=== PATIENT | male | born 1970 | race Hispanic/Latino ===

== ENCOUNTER 2025-06-28 00:15 | Inpatient (IN) | payer SELFPAY ==
[2025-06-28] VITALS (21 sets, daily range): BP systolic 129–187; BP diastolic 81–119; PULSE 71–112; RESP 10–23; TEMP 36.1–36.9; O2SAT 89–97; BMI 46.5
--- NOTE | 2025-06-28 00:16 | DI.RAD.S_ITS ---
PROCEDURE: XR CHEST 1V INDICATIONS: Chest Pain TECHNIQUE: One view of the chest was acquired. COMPARISON: None. FINDINGS: Surgical changes and devices: None. Lungs and pleura: No consolidation. Question bronchial wall thickening. No pleural effusions or pneumothorax. Mediastinum: Mediastinal contours appear normal. Heart size is normal. Bones and chest wall: No suspicious bony lesions. Overlying soft tissues appear unremarkable. IMPRESSION: Question bronchial wall thickening. This could be seen in reactive airways disease or bronchitis. Dictated by: Michael Yepez M.D. on 06/28/2025 at 1:01 Approved by: Michael Yepez M.D. on 06/28/2025 at 1:02
--- NOTE | 2025-06-28 00:16 | EKG_ITS ---
[address] [address] Test Date: 2025-06-28 Pat Name: Rolando Sherman Jr Department: Room: Gender: Male Renal Technician: KRISTIN : 1970 Requested By: Order Number: [id number] Reading MD: Nino Lopez MD Measurements Intervals [place] Rate: 82 P: 40 [place]: 142 QRS: 27 QRSD: 106 T: 73 QT: 386 QTc: 450 Interpretive Statements Normal sinus rhythm Electronically Signed On 06-28-2025 9:20:53 PST by Nino Lopez MD
--- NOTE | 2025-06-28 00:35 | PC.NURSE ---
pt c/o chest pain with cough that has increased in severity, and also worsens when outside in the cold
[2025-06-28 00:42] LABS: Add Manual Diff / Slide Review NO; Hematocrit 43.7 % (41-53); Hemoglobin 14.9 g/dL (13.5-17.5); Lymphocytes Absolute Auto 3400 /uL (1100-4500); Mean Corpuscular HGB Conc 34.0 % (30-36); Mean Corpuscular Hemoglobin 31.7 PG (26-34); Mean Corpuscular Volume 93.3 fL (80-100); Platelet Count 249 X10^3/uL (150-400)
[2025-06-28 00:47] LABS: INR 1.1 (0.9-1.3); Prothrombin Time 12.8 SECONDS (9.4-12.5)
[2025-06-28 00:50] LABS: PTT Partial Thromboplastin Tim 39 SECONDS (25.1-36.5)
[2025-06-28 00:56] LABS: Alanine Aminotransferase 22 IU/L (<50); Albumin 4.5 g/dL (3.5-5.0); Albumin Globulin Ratio 1.3 (1.0-2.8); Alkaline Phosphatase 105 U/L (38-126); Blood Urea Nitrogen 32 mg/dL (9-20); Calcium 9.6 mg/dL (8.4-10.2); Carbon Dioxide 31 mmol/L (22-32); Chloride 103 mmol/L (98-107); Creatine Kinase 49 U/L (55-170); Estimated Glomerular Filt Rate > 60 mL/min (>60); Globulin 3.4 g/dL (1.7-4.1); Glucose 102 mg/dL (70-99); HEMOLYSIS < 15 (0-50); Lipase 71 U/L (23-300); Magnesium 2.0 mg/dL (1.6-2.3); Potassium 4.2 mmol/L (3.4-5.1); Sodium 143 mmol/L (137-145); Total Protein 7.9 g/dL (6.3-8.2)
--- NOTE | 2025-06-28 00:58 | ED_ITS ---
HPI - Chest Pain General Chief Complaint: Chest Pain Stated Complaint: Chest Pain Time Seen by Provider: 06/28/25 00:35 Source: patient Mode of arrival: Ambulatory Limitations: no limitations History of Present Illness HPI narrative: 54-year-old male with a history of hypertension diabetes , sleep apnea presents with flu-like symptoms for the past week and today presented with more shortness of breath and pain in bilateral axillary regions that started suddenly today. He does admit to being a long-time 30 plus pack year smoker but has never been diagnosed with any chronic lung conditions and is not using any inhalers at this moment. He denies any GI or symptoms or any other symptoms. Thirteen point review of systems negative except per HPI Related Data Allergies Allergy/AdvReac Type Severity Reaction Status Date / Time pumpkin Allergy Verified 06/28/25 00:27 Review of Systems Review of Systems ROS Unobtainable: All systems reviewed & are unremarkable except as noted in HPI and below Patient History Social History Smoking Status: Current every day smoker Smoking Status: Current every day smoker tobacco type: cigarettes Exam Narrative Exam Narrative: General: Patient appears to be in no acute distress, acting appropriately Head: normocephalic, atraumatic, HEENT: Pupils equal round reactive, eyes tracking well, neck supple, no JVD Heart: regular rate and rhythm, no murmurs, rubs, or gallops heard Lungs: Bilateral wheezing and rhonchi heard Abdomen: soft , nontender, nondistended, positive bowel sounds Neurological: no focal neurological signs, moving all extremities well, alert and oriented x3, Psych: good judgment ,good insight, mood is normal. Initial Vital Signs Initial Vital Signs: Vital Signs Temperature 98.5 F 06/28/25 00:27 Pulse Rate 85 06/28/25 00:27 Respiratory Rate 22 06/28/25 00:27 Blood Pressure 177/101 H 06/28/25 00:27 Pulse Oximetry 93 06/28/25 00:27 Oxygen Delivery Method Room Air 06/28/25 00:27 Course Orders Ordered: ED Orders 06/28/25 00:16 XR chest 1V Stat EKG-12 Lead Stat 06/28/25 00:31 Complete Blood Count AUTO DIFF Stat Comprehensive Metabolic Panel Stat Covid-19 + FLU A/B + RSV - PCR Stat Lipase Stat Magnesium Stat NT-proBNP (BNP-Adult 18+) Stat PTT Partial Thromboplastin Delio Stat Prothrombin Time INR Stat Troponin & CK Cardiac Panel Stat 06/28/25 00:58 D Dimer Stat 06/28/25 01:44 CT angio chest PE protocol Stat 06/29/25 06:00 Basic Metabolic Panel DAILY Complete Blood Count AUTO DIFF DAILY Acetaminophen (Acetaminophen 325 Mg Tablet) 650 mg PO Q6H PRN PRN Reason: Fever/Mild Pain (1-3) Albuterol/Ipratropium (Albuterol/Ipratropium 3 Ml Ampul) 3 ml INH RTQ4HR PRN PRN Reason: Shortness Of Breath Albuterol/Ipratropium (Albuterol/Ipratropium 3 Ml Ampul) 3 ml INH [id number] MARINA Azithromycin 500 mg/ Dextrose 250 mls @ 250 mls/hr IV Q24H MARINA Ceftriaxone Sodium 1,000 mg/ (Sodium Chloride) 100 mls @ 200 mls/hr IV Q24H MARINA Methylprednisolone (Methylprednisolone Succ 125 Mg/2 Ml Vial) 60 mg IV Q8H MARINA Naloxone HCl (Naloxone 0.4 Mg/Ml Vial) 0.2 mg IV Q2MIN PRN PRN Reason: Opiate Reversal Discontinued Medications Albuterol/Ipratropium (Albuterol/Ipratropium 3 Ml Ampul) 3 ml INH NOW ONE Stop: 06/28/25 00:57 Last Admin: 06/28/25 01:05 Dose: 3 ml Albuterol/Ipratropium (Albuterol/Ipratropium 3 Ml Ampul) 3 ml INH NOW ONE Stop: 06/28/25 01:35 Last Admin: 06/28/25 01:38 Dose: 3 ml Azithromycin 500 mg/ Dextrose 250 mls @ 250 mls/hr IV NOW ONE Stop: 06/28/25 03:32 Methylprednisolone (Methylprednisolone Succ 125 Mg/2 Ml Vial) 125 mg IV NOW ONE Stop: 06/28/25 01:35 Last Admin: 06/28/25 02:21 Dose: 125 mg Reevaluation(s) Reevaluation #1: Upon re-evaluation, patient is breathing better after 2 DuoNeb treatments. Consultations Consultation #1: Consultation made with hospitalist Dr. Castro who graciously admitted the patient. Vital Signs Vital signs: Vital Signs - 8 hr 06/28/25 00:27 06/28/25 01:06 06/28/25 01:40 Temperature 98.5 F Pulse Rate 85 84 73 Respiratory Rate 22 20 18 Blood Pressure 177/101 H Pulse Oximetry 93 93 93 Oxygen Delivery Method Room Air Nasal Cannula Oximask Oxygen Flow Rate 2 4 06/28/25 01:54 06/28/25 02:24 06/28/25 02:25 Temperature Pulse Rate 87 83 Respiratory Rate Blood Pressure 129/86 Pulse Oximetry 91 93 Oxygen Delivery Method Oxygen Flow Rate 06/28/25 02:25 06/28/25 02:30 06/28/25 02:30 Temperature Pulse Rate 84 81 Respiratory Rate 10 L Blood Pressure 141/84 H Pulse Oximetry 92 94 Oxygen Delivery Method Oximask Oximask Oxygen Flow Rate 4 4 MDM - Chest Pain Lab Data 06/28/25 00:31 06/28/25 00:31 Labs: Lab Results 06/28/25 Range/Units 00:31 WBC 11.0 (4.5-11.0) X10^3/uL RBC 4.69 (4.5-5.9) X10^6/uL Hgb 14.9 (13.5-17.5) g/dL Hct 43.7 (41-53) % MCV 93.3 (80-100) fL MCH 31.7 (26-34) PG MCHC 34.0 (30-36) % RDW 13.9 (11.6-14.8) % Plt Count 249 (150-400) X10^3/uL Neut % (Auto) 57.2 (50-75) % Lymph % (Auto) 31.4 (25-40) % [place] % (Auto) 8.2 (3-14) % Eos % (Auto) 2.3 (2-4) % Baso % (Auto) 0.9 (0-2) % Neut # (Auto) 6300 (0219-6159) /uL Lymph # (Auto) 3400 (4737-7790) /uL [place] # (Auto) 900 (0-900) /uL Eos # (Auto) 200 (0-450) /uL Baso # (Auto) 100 (0-100) /uL PT 12.8 H (9.4-12.5) SECONDS INR 1.1 (0.9-1.3) APTT 39 H (25.1-36.5) SECONDS D-Dimer 1077 H (<500) ng/ml Sodium 143 (137-145) mmol/L Potassium 4.2 (3.4-5.1) mmol/L Chloride 103 (98-107) mmol/L Carbon Dioxide 31 (22-32) mmol/L BUN 32 H (9-20) mg/dL Creatinine 1.08 (0.66-1.25) mg/dL Estimated GFR > 60 (>60) mL/min BUN/Creatinine Ratio 29.6 H (6-22) Glucose 102 H (70-99) mg/dL Calcium 9.6 (8.4-10.2) mg/dL Magnesium 2.0 (1.6-2.3) mg/dL Total Bilirubin 0.4 (0.2-1.3) mg/dL AST 25 (17-59) IU/L ALT 22 (<50) IU/L Alkaline Phosphatase 105 (38-126) U/L Total Creatine Kinase 49 L (55-170) U/L Troponin I 0.015 (0.01-0.034) ng/mL NT-Pro-B Natriuret Pep 117 (<125) pg/mL Total Protein 7.9 (6.3-8.2) g/dL Albumin 4.5 (3.5-5.0) g/dL Globulin 3.4 (1.7-4.1) g/dL Albumin/Globulin Ratio 1.3 (1.0-2.8) Lipase 71 (23-300) U/L SARS-CoV-2 (PCR) Negative (Negative) Influenza A (RT-PCR) Flu a negative (NEGATIVE) Influenza B (RT-PCR) Flu b negative (NEGATIVE) RSV (PCR) Negative (Negative) Imaging Data CT scan - chest: Radiologist's Impression: No pulmonary emboli identified. Possible infiltrate or pneumonitis in the right upper lobe. Chest x-ray: Radiologist's Impression: Question bronchial wall thickening. This could be seen in reactive airways disease or bronchitis. ECG Data Interpretation: EKG shows a normal axis, normal sinus rhythm, rate of 82 beats per minute, normal OH intervals no STT wave changes. No previous EKG for comparison. MDM Narrative Medical decision making narrative: 54-year-old male who has never been diagnosed with COPD but claims to use home O2 off and on. He is out of home O2 at the moment. He came in with sudden more shortness of breath and pain in his bilateral axillary regions. He fits the picture of more of a COPD exacerbation considering his long-time smoking history. He does feel better after couple of DuoNeb treatments and Solu-Medrol. He is still requiring 4 L on the OxyMask and so it was decided to admit the patient for this presumed COPD exacerbation needing O2 support. Discharge Plan Departure Patient Disposition: Admitted As Inpatient Clinical Impression: Acute exacerbation of chronic obstructive pulmonary disease, Shortness of breath Admit Date/Time: 06/28/25 03:52 Admit Provider: Jimy Castro
[2025-06-28] MEDS: ALBUTEROL/IPRATROPIUM 3 ML AMPUL INH ×5 (01:05→20:00)
[2025-06-28 01:07] LABS: NT-proBNP (BNP-Adult 18+) 117 pg/mL (<125); Troponin I 0.015 ng/mL (0.01-0.034)
[2025-06-28 01:16] LABS: Influenza A - CEPHEID Flu A NEGATIVE (NEGATIVE); Influenza B - CEPHEID Flu B NEGATIVE (NEGATIVE)
[2025-06-28 01:18] LABS: COVID-19 CEPHEID 4-PLEX PCR Negative (Negative)
--- NOTE | 2025-06-28 01:44 | DI.CT.S_ITS ---
PROCEDURE: CT ANGIO CHEST PE PROTOCOL INDICATIONS: elevated d dimer, short of breath TECHNIQUE: After the administration of intravenous contrast, 2 mm thick sections acquired from the pulmonary apices to the posterior costophrenic angles. 3-dimensional maximum intensity projection (MIP) coronal and sagittal reformats were then acquired through the thorax. For radiation dose reduction, the following was used: automated exposure control, adjustment of mA and/or kV according to patient size. COMPARISON: [facility], CR, XR CHEST 1V, 06/28/2025, 0:14. FINDINGS: Image quality: Diagnostic. Pulmonary arteries: Pulmonary arteries are normal in size, and demonstrate no intraluminal filling defects to suggest central pulmonary embolism. Lower Neck: No enlarged lymph nodes. Thyroid: No thyroid nodules which require sonographic follow up, per consensus guidelines. Axillae: No enlarged lymph nodes. Chest Wall: Unremarkable. Bones: Age-appropriate bony degenerative changes are seen. Accentuated thoracic kyphosis is seen. Lungs and Pleura: No pneumothorax or pleural effusions. Minimal opacity can be seen within the anterior medial right upper lobe. Heart: Heart size is normal. No pericardial effusion. Thoracic Vessels: No aortic aneurysm. Mediastinum and Mary: No enlarged lymph nodes. Esophagus: No wall thickening. No hiatal hernia. Upper Abdomen: Visualized upper abdomen solid organs and bowel loops appear normal. IMPRESSION: No pulmonary embolus. Minimal opacity seen within the anterior medial right upper lobe. Mild infiltrate versus infection are possible. Note: No significant discrepancy from the preliminary report. Dictated by: Nilton Briggs M.D. on 06/28/2025 at 6:55 Approved by: Nilton Briggs M.D. on 06/28/2025 at 6:58
[2025-06-28] MEDS: methylPREDNISolone succ 125 MG/2 ML VIAL IV (02:21)
[2025-06-28] MEDS: AZITHROMYCIN 500 MG in DEXTROSE 5% IN WATER 250 ML 250 MG IV (04:17)
--- NOTE | 2025-06-28 04:22 | PM.HP.1 ---
History of Present Illness History of Present Illness Date Patient Seen: 06/28/25 Time Patient Seen: 04:22 Chief complaint: Chest Pain Narrative: 54-year-old male with past medical history of COREY on 2 L oxygen at bedtime, hypertension, active tobacco smoker and smoked 1-1/2 pack/day (smokes about 30 years), morbid obesity and diabetes presents with shortness of breath. Per the patient's report, the patient has been having flulike symptoms. Today the patient shortness of breath worsens and does admit to have some wheezing. The patient however denies any prior history of COPD and does not have any inhalers at home. Patient otherwise denies any fever, chills, nausea, vomit, diarrhea or chest pain. In the emergency room, the patient was requiring 4 L oxygen per nasal cannula. The patient however was found hemodynamically stable. Chest x-ray shows possible bronchitis. CT angio of the chest shows no PE but a possible early pneumonia/colitis. Other labs relatively benign. She was given Solu-Medrol, azithromycin, DuoNebs and oxygen. [facility] Social History Smoking Status: Current every day smoker Meds Home Medications and Allergies Allergies Allergy/AdvReac Type Severity Reaction Status Date / Time pumpkin Allergy Verified 06/28/25 00:27 Review of Systems Review of Systems ROS: Yes All systems reviewed with the patient and are negative except as otherwise documented Exam Vital Signs (past 8 hours): - 06/28/25 00:27 06/28/25 01:06 06/28/25 01:40 Temperature 98.5 F Pulse Rate 85 84 73 Respiratory Rate 22 20 18 Blood Pressure 177/101 H Pulse Oximetry 93 93 93 Oxygen Delivery Method Room Air Nasal Cannula Oximask Oxygen Flow Rate 2 4 06/28/25 01:54 06/28/25 02:24 06/28/25 02:25 Temperature Pulse Rate 87 83 Respiratory Rate Blood Pressure 129/86 Pulse Oximetry 91 93 Oxygen Delivery Method Oxygen Flow Rate 06/28/25 02:25 06/28/25 02:30 06/28/25 02:30 Temperature Pulse Rate 84 81 Respiratory Rate 10 L Blood Pressure 141/84 H Pulse Oximetry 92 94 Oxygen Delivery Method Oximask Oximask Oxygen Flow Rate 4 4 Oxygen Delivery Method Oximask Oxygen Flow Rate 4 Narrative Exam Narrative: Physical Exam: GENERAL: The patient is not in any acute distressed. Awake and alert. Morbid obese male on O2 face mask. HEENT: Nonicteric sclerae, PERRLA, EOMI. Oropharynx clear. Moist mucous membranes. Conjunctivae appear well perfused. HEART: Regular rate and rhythm without murmurs. No lower extremities edema. LUNGS: Mild bilateral wheezing otehrwise Clear to auscultation bilaterally. No crackles or rhonchi ABDOMEN: Soft, positive bowel sounds, nontender. SKIN: No rash, no excessive bruising, petechiae, or purpura. NEUROLOGIC: AxO x 3. Cranial nerves II-XII intact without motor/sensory deficit. Objective Labs 06/28/25 00:31 12 00:31 Labs: Laboratory Results - last 24 hr 06/28/25 00:31 WBC 11.0 RBC 4.69 Hgb 14.9 Hct 43.7 MCV 93.3 MCH 31.7 MCHC 34.0 RDW 13.9 Plt Count 249 Neut % (Auto) 57.2 Lymph % (Auto) 31.4 [place] % (Auto) 8.2 Eos % (Auto) 2.3 Baso % (Auto) 0.9 Neut # (Auto) 6300 Lymph # (Auto) 3400 [place] # (Auto) 900 Eos # (Auto) 200 Baso # (Auto) 100 PT 12.8 H INR 1.1 APTT 39 H D-Dimer 1077 H Sodium 143 Potassium 4.2 Chloride 103 Carbon Dioxide 31 BUN 32 H Creatinine 1.08 Estimated GFR > 60 BUN/Creatinine Ratio 29.6 H Glucose 102 H Calcium 9.6 Magnesium 2.0 Total Bilirubin 0.4 AST 25 ALT 22 Alkaline Phosphatase 105 Total Creatine Kinase 49 L Troponin I 0.015 NT-Pro-B Natriuret Pep 117 Total Protein 7.9 Albumin 4.5 Globulin 3.4 Albumin/Globulin Ratio 1.3 Lipase 71 SARS-CoV-2 (PCR) Negative Influenza A (RT-PCR) Flu a negative Influenza B (RT-PCR) Flu b negative RSV (PCR) Negative Assessment & Plan Assessment & Plan narrative: Possible diagnoses COPD exacerbation. Admit the patient to medical telemetry as inpatient. Continue Solu-Medrol, DuoNebs and oxygen. Treat underlying infection. Will need to have PFTs as outpatient post discharge to diagnose COPD as patient is a 40 pack year plus smoker. Acute on chronic respiratory failure with hypoxemia. Again patient is at baseline 2 L of oxygen per nasal at night. Currently patient is on 4 L oxygen per nasal cannula. Likely due to above. CT angio that shows PE. Treat as above and wean oxygen. Early pneumonia/colitis-azithromycin and statin. Patient not septic at this time. Hypertension monitor blood pressure continue medication accordingly. Diabetes. Monitor glucose with subcu insulin. DVT prophylaxis Lovenox CODE STATUS Full code Disposition Home in 2 days. - As the provider of this telehealth evaluation, requested by the patient's evaluating physician, I attest that I introduced myself to the patient, provided my credentials and determined that telemedicine via a real-time, 2 way interactive audio and video platform is an appropriate and effective means of providing this service. - I reviewed the patient's chart and had a discussion with the member of the patient's treatment team. - The patient and I mutually agreed with continuation of this evaluation via telemedicine. The patient consented for the telemedicine evaluation. - This virtual encounter was taken place from [place] by Dr. Jimy Castro. The patient was evaluated at [facility]. The encounter was approximately 35 minutes. The nurse was present during the entire time of the encounter and was able assists with the stethoscope to listen to the patients. Time-Based Coding :: [TOTAL MINUTES] spent with patient and on the chart (including review of chart, obtaining history, exam, reviewing outside data, placing orders, documenting exam and treatment plan, and counseling patient) on [DATE].
--- NOTE | 2025-06-28 04:28 | PC.NURSE ---
no change in pt's condition, discussed with pt the importance of him using his cpap machine d/t his oxygen levels dropping when he sleeps, pt verbalized understanding, on oxymask at 4 liters at this time to maintain O2 levels
[2025-06-28] MEDS: ENOXAPARIN 40 MG/0.4 ML SYRINGE SUBCUT ×2 (08:34→21:22)
[2025-06-28] MEDS: methylPREDNISolone succ 125 MG/2 ML VIAL 60 MG IV ×2 (08:34→17:22)
[2025-06-28] MEDS: INSULIN GLARGINE 100 UNIT/ML 3ML PEN 40 UNIT SUBCUT (08:34)
[2025-06-28] MEDS: SODIUM CHLORIDE 0.9% FLUSH 10 ML IV ×2 (08:35→21:22)
--- NOTE | 2025-06-28 11:04 | PM.HP.IH.1 ---
History of Present Illness History of Present Illness Date Patient Seen: 06/28/25 Time Patient Seen: 07:58 Chief complaint: Chest Pain Narrative: From night hospitalist: 54-year-old male with past medical history of COREY on 2 L oxygen at bedtime, hypertension, active tobacco smoker and smoked 1-1/2 pack/day (smokes about 30 years), morbid obesity and diabetes presents with shortness of breath. Per the patient's report, the patient has been having flulike symptoms. Today the patient shortness of breath worsens and does admit to have some wheezing. The patient however denies any prior history of COPD and does not have any inhalers at home. Patient otherwise denies any fever, chills, nausea, vomit, diarrhea or chest pain. In the emergency room, the patient was requiring 4 L oxygen per nasal cannula. The patient however was found hemodynamically stable. Chest x-ray shows possible bronchitis. CT angio of the chest shows no PE but a possible early pneumonia/colitis. Other labs relatively benign. She was given Solu-Medrol, azithromycin, DuoNebs and oxygen. 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 He is very interested in quitting smoking. He has smoked since his teenage years, at times over 2 packs daily, down to 1-1/2 packs lately, and using 2 mg oral nicotine pouches to help quit. He states he can not tolerate a higher dose due to tremors. He states he does not have a doctor now as he is new to his job and has not yet acquired health insurance. No alcohol use. [facility] Social History Smoking Status: Current every day smoker Meds Home Medications and Allergies Allergies Allergy/AdvReac Type Severity Reaction Status Date / Time pumpkin Allergy Verified 06/28/25 00:27 Review of Systems Review of Systems ROS: Yes All systems reviewed with the patient and are negative except as otherwise documented Exam Vital Signs (past 8 hours): - 06/28/25 03:30 06/28/25 03:30 06/28/25 04:00 Temperature Pulse Rate 79 Respiratory Rate 18 Blood Pressure 148/81 H 157/93 H Pulse Oximetry 90 L Oxygen Delivery Method Oxygen Flow Rate Fraction of Inspired Oxygen 06/28/25 04:00 06/28/25 04:16 06/28/25 04:50 Temperature 97.0 F L Pulse Rate 74 74 Respiratory Rate 20 20 Blood Pressure 152/101 H Pulse Oximetry 94 93 Oxygen Delivery Method Oximask Oxygen Flow Rate 4 Fraction of Inspired Oxygen 06/28/25 08:19 06/28/25 08:33 Temperature 97.1 F L Pulse Rate 77 71 Respiratory Rate 22 22 Blood Pressure 159/93 H Pulse Oximetry 94 94 Oxygen Delivery Method Oximask Oxygen Flow Rate 4 5 Fraction of Inspired Oxygen 92 Fraction of Inspired Oxygen 92 SaO2/FiO2 Ratio 101 Oxygen Delivery Method Oximask Oxygen Flow Rate 5 Narrative Exam Narrative: GENERAL: This is a pleasant, obese male patient, in mild respiratory distress. EYES: Pupils equal round and reactive. Extraocular motions intact. No scleral icterus. No injection or drainage. ENT: Mucous membranes pink and moist. NECK: Trachea midline. No JVD, bruits or lymphadenopathy. Supple, nontender, no meningeal signs. CARDIOVASCULAR: Regular rate and rhythm without murmurs, gallops, or rubs. RESPIRATORY: Diffuse mid to end-expiratory wheezes, no accessory muscle use. GASTROINTESTINAL: Abdomen soft, non-tender, nondistended. EXTREMITIES: Trace edema. NEUROLOGIC: Alert, oriented, speech fluent, full upper and lower motor strength, no focal deficits evident. DERMATOLOGIC: No rashes or skin lesions. Objective Imaging Chest x-ray: Radiologist's impression: Question bronchial wall thickening. This could be seen in reactive airways disease or bronchitis. Chest CTA: Radiologist's impression: No pulmonary embolus. Minimal opacity seen within the anterior medial right upper lobe. Mild infiltrate versus infection are possible. Labs 06/28/25 00:31 06/28/25 00:31 Labs: Laboratory Results - last 24 hr 06/28/25 06/28/25 06/28/25 00:31 04:47 07:26 WBC 11.0 RBC 4.69 Hgb 14.9 Hct 43.7 MCV 93.3 MCH 31.7 MCHC 34.0 RDW 13.9 Plt Count 249 Neut % (Auto) 57.2 Lymph % (Auto) 31.4 [place] % (Auto) 8.2 Eos % (Auto) 2.3 Baso % (Auto) 0.9 Neut # (Auto) 6300 Lymph # (Auto) 3400 [place] # (Auto) 900 Eos # (Auto) 200 Baso # (Auto) 100 PT 12.8 H INR 1.1 APTT 39 H D-Dimer 1077 H Sodium 143 Potassium 4.2 Chloride 103 Carbon Dioxide 31 BUN 32 H Creatinine 1.08 Estimated GFR > 60 BUN/Creatinine Ratio 29.6 H Glucose 102 H POC Whole Bld Glucose 142 H 151 H Calcium 9.6 Magnesium 2.0 Total Bilirubin 0.4 AST 25 ALT 22 Alkaline Phosphatase 105 Total Creatine Kinase 49 L Troponin I 0.015 NT-Pro-B Natriuret Pep 117 Total Protein 7.9 Albumin 4.5 Globulin 3.4 Albumin/Globulin Ratio 1.3 Lipase 71 SARS-CoV-2 (PCR) Negative Influenza A (RT-PCR) Flu a negative Influenza B (RT-PCR) Flu b negative RSV (PCR) Negative Assessment & Plan Assessment & Plan narrative: 1. COPD exacerbation. Admit the patient to medical telemetry as inpatient. Continue Solu-Medrol, DuoNebs and oxygen. Treat underlying infection. Will need to have PFTs as outpatient post discharge to diagnose COPD as patient is a 40 pack year plus smoker. 2. Acute on chronic respiratory failure with hypoxemia. Again patient is at baseline 2 L of oxygen per nasal at night. Currently patient is on 4 L oxygen per nasal cannula. Likely due to above. CT angio that shows PE. Treat as above and wean oxygen. 3. Early pneumonia/colitis-azithromycin and ceftriaxone. Patient not septic at this time. 4. Hypertension monitor blood pressure continue medication accordingly. 5. Diabetes. Monitor glucose with subcu insulin. 6. Tobacco use disorder. Cessation is advised. 7. Obstructive sleep apnea. Continue CPAP Plan: -inpatient admission -IV ceftriaxone and azithromycin -frequently administered nebulizers -IV methylprednisolone -nicotine 7 mg patch (difficulty tolerating higher doses) -diabetic diet, clarify home dose of insulin, sliding scale coverage DVT prophylaxis Lovenox CODE STATUS Full code Disposition Home in 2 days. Quality MIPS - Admit I confirm the patient?s Advance Care Plan is present, Code status is documented, Surrogate decision maker is in patient?s record [If Yes, STOP here]: Yes MIPS - Meds 'Current medications' to include all prescriptions, [id number] products, herbals, cannabis/cannabidiol products, and vitamin/mineral/dietary (nutritional) supplements. I have utilized all available resources to obtain, update, or review the patient?s current medications. [If Yes, STOP here]: Yes [facility] [employer] Document charge(s): No Charge Codes Initial inpatient/observation care: 75570
[2025-06-28] MEDS: NICOTINE 7 MG PATCH TOP (11:59)
--- NOTE | 2025-06-28 16:19 | CM.DANOTE ---
DCP Assessment note Brief pt is a 54yo M admitted with COPD exacerbation. per chart review, no ins. per RN/susan notes, pt given jeradl packet. 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 does not have ins. not appropriate staff on Sunday to figure out if he qualifies for medicaid in the mean time. per chart, ambulates indep. lives in [place]. 2ltrs O2 during night and none during day. at this time 4ltrs O2 oxymask. CRIMINAL INTELLIGENCE SPECIALIST attempted to meet with pt x2, either with other staff or sleeping heavily. P: anticipate home when stable. will f/u about INS and oxygen at home. will follw in case additional DCP needs should arise KIM Pierre Discharge Planning/Care Management CM Discharge Assessment Start: 06/28/25 04:16 Freq: Status: Active Protocol: Document 06/28/25 15:21 SL (Rec: 06/28/25 16:18 SL [id number]) Discharge Planning Assessment Assigned Discharge KIM [employer] Duplicator Punch Set Up Operator Provider none at this time Insurance Comment none at this time DPOA/Assigned kalie Flores Designee Name Contact Information [phone] Advance Directives? No History Provided By Patient Type of Drives own vehicle transporation used prior to admit Independent with ADL Yes 's Is patient alert and Yes oriented? Comment o2 at home, 2ltrs at night none during the day Discharge Plan Home Review Status In Process Please Provide Date 06/28/25 Initial DC Assessment Was Performed Next Review Type Continued Stay Review
[2025-06-28] MEDS: NICOTINE 14 PATCH 14 MG TOP (21:22)
[2025-06-29] VITALS (9 sets, daily range): BP systolic 144–172; BP diastolic 92–103; PULSE 68–102; RESP 16–24; TEMP 35.9–36.6; O2SAT 95–99
[2025-06-29] MEDS: methylPREDNISolone succ 125 MG/2 ML VIAL 60 MG IV ×3 (01:47→20:54)
[2025-06-29] MEDS: AZITHROMYCIN 500 MG in DEXTROSE 5% IN WATER 250 ML 250 MG IV (01:47)
[2025-06-29 04:58] LABS: Add Manual Diff / Slide Review NO; Hematocrit 43.6 % (41-53); Hemoglobin 14.4 g/dL (13.5-17.5); Lymphocytes Absolute Auto 1500 /uL (1100-4500); Mean Corpuscular HGB Conc 33.1 % (30-36); Mean Corpuscular Hemoglobin 31.0 PG (26-34); Mean Corpuscular Volume 93.6 fL (80-100); Platelet Count 257 X10^3/uL (150-400)
[2025-06-29 05:09] LABS: Blood Urea Nitrogen 26 mg/dL (9-20); Calcium 9.3 mg/dL (8.4-10.2); Carbon Dioxide 28 mmol/L (22-32); Chloride 104 mmol/L (98-107); Estimated Glomerular Filt Rate > 60 mL/min (>60); Glucose 147 mg/dL (70-99); HEMOLYSIS < 15 (0-50); Potassium 4.5 mmol/L (3.4-5.1); Sodium 141 mmol/L (137-145)
[2025-06-29 05:16] LABS: Hemoglobin A1C% w Est Avg Glu 5.8 % (4.0-6.0)
--- NOTE | 2025-06-29 05:31 | P.PN_ITS ---
Subjective Subjective Interval history: A&P 54-year-old male with past medical history of COREY on 2 L oxygen at bedtime, hypertension, active tobacco smoker and smoked 1-1/2 pack/day (smokes about 30 years), morbid obesity and diabetes presents with shortness of breath. COPD exacerbation Possible CAP Acute on chronic hypoxic respiratory failure COREY Tobacco use Clinically improving on current management. Oxygen decreased to 3L, baseline is 2 L at night only. Patient also uses CPAP for COREY * Continue Solu-Medrol but change to q.12 hours * Continue DuoNeb * Continue ceftriaxone and azithromycin * Titrate oxygen as * Encouraged tobacco cessation * Outpatient PFTs * Continue CPAP * Care management to work with patient regarding oxygen and filters for CPAP machine given that he no longer has insurance. Hypertension Suboptimal control and does not appear to be on any medications. * Given history of diabetes, will initiate lisinopril. Diabetes mellitus Patient with a history of diabetes mellitus, last hemoglobin A1c was 5.8. Glucose 147 this morning. * Start fingerstick blood sugar * Continue Lantus and lispro * May need to adjust doses in the setting of Solu-Medrol Leukocytosis, new Likely demargination from steroid use. * Recheck in the morning Code Status: Full Diet: Carb controlled Lines/Tubes: Peripheral IV DVT Prophylaxis: Enoxaparin Discharge Planning: Anticipate discharge to home in 1-2 days. Care management to sort out oxygen and filter CPAP prior to discharge. Chief Complaint: Shortness of breath Subjective: Patient with shortness of breath, otherwise review of systems negative Objective Vitals reviewed A&O, WN, WD, NAD NCAT, OP moist, neck supple RRR, nl S1 and S2, no murmurs CTA bilaterally Soft, NT, ND, +BS Warm without edema Neuro grossly nonfocal Pleasant, cooperative Labs: Labs reviewed and notable for WBC 13.9, glucose 140 Imaging: Imaging reviewed and notable for CTA without PE, minimal opacity anterior medial right upper lobe Time spent: 50 minutes spent with patient and on the chart (including review of chart, obtaining history, exam, reviewing outside data, placing orders, documenting exam and treatment plan, and counseling patient). Exam Vital Signs (past 8 hours): - 06/28/25 23:00 06/29/25 03:00 Temperature 97.4 F L 96.9 F L Pulse Rate 79 70 Respiratory Rate 20 20 Blood Pressure 158/84 H 159/98 H Pulse Oximetry 95 95 Oxygen Flow Rate 5 5 Fraction of Inspired Oxygen 45 SaO2/FiO2 Ratio 208 Oxygen Delivery Method Oximask Oxygen Flow Rate 5 Objective Labs 06/29/25 04:30 06/29/25 04:30 Labs: Laboratory Results - last 24 hr 06/28/25 06/28/25 06/28/25 07:26 11:25 16:17 WBC RBC Hgb Hct MCV MCH MCHC RDW Plt Count Neut % (Auto) Lymph % (Auto) Sawyer % (Auto) Eos % (Auto) Baso % (Auto) Neut # (Auto) Lymph # (Auto) Sawyer # (Auto) Eos # (Auto) Baso # (Auto) Sodium Potassium Chloride Carbon Dioxide BUN Creatinine Estimated GFR BUN/Creatinine Ratio Glucose POC Whole Bld Glucose 151 H 164 H 154 H Hemoglobin A1c Calcium 06/28/25 06/29/25 21:42 04:30 WBC 13.9 H RBC 4.66 Hgb 14.4 Hct 43.6 MCV 93.6 MCH 31.0 MCHC 33.1 RDW 13.8 Plt Count 257 Neut % (Auto) 85.4 H D Lymph % (Auto) 10.7 L D Sawyer % (Auto) 3.7 Eos % (Auto) 0.0 L Baso % (Auto) 0.2 Neut # (Auto) 40885 H Lymph # (Auto) 1500 Sawyer # (Auto) 500 Eos # (Auto) 0 Baso # (Auto) 0 Sodium 141 Potassium 4.5 Chloride 104 Carbon Dioxide 28 BUN 26 H Creatinine 0.83 Estimated GFR > 60 BUN/Creatinine Ratio 31.3 H Glucose 147 H POC Whole Bld Glucose 133 H Hemoglobin A1c 5.8 Calcium 9.3 PFSH Social History Smoking Status: Current every day smoker Assessment & Plan Time-Based Coding :: [TOTAL MINUTES] spent with patient and on the chart (including review of chart, obtaining history, exam, reviewing outside data, placing orders, documenting exam and treatment plan, and counseling patient) on [DATE].
[2025-06-29] MEDS: ALBUTEROL/IPRATROPIUM 3 ML AMPUL INH ×2 (07:57→12:22)
[2025-06-29] MEDS: INSULIN GLARGINE 100 UNIT/ML 3ML PEN 40 UNIT SUBCUT (08:21)
[2025-06-29] MEDS: NICOTINE 14 PATCH 14 MG TOP (08:22)
[2025-06-29] MEDS: SODIUM CHLORIDE 0.9% FLUSH 10 ML IV ×2 (08:22→20:55)
[2025-06-29] MEDS: ENOXAPARIN 40 MG/0.4 ML SYRINGE SUBCUT ×2 (08:22→20:54)
[2025-06-29] MEDS: INSULIN LISPRO 100 UNIT/ML 3ML VIAL SUBCUT (16:55)
[2025-06-29] MEDS: ACETAMINOPHEN 325 MG TABLET 650 MG PO (20:54)
[2025-06-30] MEDS: AZITHROMYCIN 500 MG in DEXTROSE 5% IN WATER 250 ML 250 MG IV (02:11)
[2025-06-30 07:00] VITALS: BP 156/90; PULSE 63; RESP 20; TEMP 36.2; O2SAT 94
[2025-06-30 07:01] LABS: Add Manual Diff / Slide Review NO; Hematocrit 43.7 % (41-53); Hemoglobin 14.4 g/dL (13.5-17.5); Lymphocytes Absolute Auto 1600 /uL (1100-4500); Mean Corpuscular HGB Conc 32.9 % (30-36); Mean Corpuscular Hemoglobin 30.7 PG (26-34); Mean Corpuscular Volume 93.4 fL (80-100); Platelet Count 262 X10^3/uL (150-400)
[2025-06-30] MEDS: NICOTINE 14 PATCH 14 MG TOP (08:29)
[2025-06-30] MEDS: INSULIN LISPRO 100 UNIT/ML 3ML VIAL SUBCUT (08:29)
[2025-06-30] MEDS: ENOXAPARIN 40 MG/0.4 ML SYRINGE SUBCUT (08:30)
[2025-06-30] MEDS: methylPREDNISolone succ 125 MG/2 ML VIAL 60 MG IV (08:35)
[2025-06-30] MEDS: INSULIN GLARGINE 100 UNIT/ML 3ML PEN 40 UNIT SUBCUT (08:48)
[2025-06-30] MEDS: SODIUM CHLORIDE 0.9% FLUSH 10 ML IV (08:49)
[2025-06-30] MEDS: ALBUTEROL/IPRATROPIUM 3 ML AMPUL INH (08:51)
[2025-06-30 08:53] VITALS: PULSE 84; RESP 18; O2SAT 93
--- NOTE | 2025-06-30 10:29 | PM.DS.1 ---
History of Present Illness History of Present Illness Date Patient Seen: 06/30/25 Time Patient Seen: 10:29 Date of Onset of Symptoms: 06/28/25 Chief complaint: Chest Pain Narrative: The patient is a 54-year-old male with a history of COREY on 2 L oxygen at bedtime, hypertension, tobacco use (1.5 pack per day times 30 years) morbid obesity, diabetes who presents with shortness of breath and flu-like symptoms for several days. At presentation, the patient denied a history of COPD. He did not report fever, chills, nausea, vomiting, diarrhea, or chest pain. He was placed on 4 L oxygen via nasal cannula and was otherwise hemodynamically stable. Chest x-ray showed possible bronchitis CT angio of the chest showed no PE but possible early pneumonia. He was treated with Solu-Medrol, azithromycin, DuoNebs, and oxygen. Discharge Providers Provider Date of admission: 06/28/25 03:52 Discharge Date: 06/30/25 Discharge provider: Lorene Yoon MD Summary Hospital Course Hospital Course: COPD exacerbation Possible CAP Acute on chronic hypoxic respiratory failure COREY Tobacco use Clinically improved with Solu-Medrol, DuoNebs, ceftriaxone, azithromycin, and oxygen. The patient is now on room air during the day. He still should use 2 L at night with his CPAP. He will discharge on a prednisone taper, M.D. eyes, and oral antibiotics. Care management has given the patient information for obtaining the filters for his CPAP as he no longer has any at home. Also he has been given information on applying for insurance through the [facility] health insurance exchange. Have encouraged tobacco cessation and prescribed nicotine patch at discharge. Hypertension Suboptimal control and ran out of his prior antihypertensives. The patient was initiated on lisinopril here with improved control. He will be given a prescription at discharge. Diabetes mellitus Patient with a history of diabetes mellitus, last hemoglobin A1c was 5.8. Glucose elevated during the hospitalization likely due to steroids. He received Lantus and lispro here but will discharge on metformin. He will need to follow up with his new primary care provider for continued monitoring and treatment of his diabetes. Leukocytosis, new Likely demargination from steroid use. Stable over the last 24 hours with white blood cell count 13.8. No signs or symptoms of new infection. Status at Discharge Cognitive/behavioral status at discharge: at baseline, oriented Functional status at discharge: independent ambulation Overall status at discharge: patient is progressing back to baseline Time Spent with Patient Time spent: Greater than 30 minutes Exam Vital Signs (past 8 hours): - 06/30/25 07:00 06/30/25 08:53 Temperature 97.2 F L Pulse Rate 63 84 Respiratory Rate 20 18 Blood Pressure 156/90 H Pulse Oximetry 94 93 Oxygen Delivery Method Room Air Oxygen Flow Rate 0 Fraction of Inspired Oxygen 21 Fraction of Inspired Oxygen 21 SaO2/FiO2 Ratio 442 Oxygen Delivery Method Room Air Oxygen Flow Rate 0 Narrative Exam Narrative: Vitals reviewed A&O, WN, WD, NAD NCAT, OP moist, neck supple RRR, nl S1 and S2, no murmurs CTA bilaterally Soft, NT, ND, +BS Warm without edema Neuro grossly nonfocal Pleasant, cooperative Objective ECG Impression: Normal sinus rhythm at 82 beats per minute. No acute ST or T-wave changes. Imaging CT scan - chest: Radiologist's impression: CTA without PE, there was minimal opacity in the anterior medial right upper lobe. Labs 06/30/25 06:55 06/29/25 04:30 Labs: Laboratory Results - last 24 hr 06/29/25 06/29/25 06/29/25 11:34 16:44 20:48 WBC RBC Hgb Hct MCV MCH MCHC RDW Plt Count Neut % (Auto) Lymph % (Auto) Rooks % (Auto) Eos % (Auto) Baso % (Auto) Neut # (Auto) Lymph # (Auto) Rooks # (Auto) Eos # (Auto) Baso # (Auto) POC Whole Bld Glucose 115 H 155 H 157 H 06/30/25 06/30/25 06:55 07:36 WBC 13.8 H RBC 4.68 Hgb 14.4 Hct 43.7 MCV 93.4 MCH 30.7 MCHC 32.9 RDW 13.8 Plt Count 262 Neut % (Auto) 84.8 H Lymph % (Auto) 11.7 L Rooks % (Auto) 3.2 Eos % (Auto) 0.0 L Baso % (Auto) 0.3 Neut # (Auto) 63762 H Lymph # (Auto) 1600 Rooks # (Auto) 400 Eos # (Auto) 0 Baso # (Auto) 0 POC Whole Bld Glucose 133 H PFSH Social History Smoking Status: Current every day smoker Discharge Plan Discharge Plan Patient Disposition: Home Discharge orders & Medications Prescriptions: New nicotine 14 mg/24 hr Patch 24 Hour 14 mg topical DAILY Qty: 30 0RF lisinopril 20 mg Tablet 20 mg PO DAILY Qty: 30 1RF prednisone 20 mg tablet 60 mg PO DAILY 5 Days Qty: 15 0RF albuterol sulfate 90 mcg/actuation HFA aerosol inhaler 2 puff inhalation QID PRN (Reason: shortness of breath or wheezing) Qty: 8.5 1RF fluticasone propion-salmeterol 232-14 mcg/actuation aerosol powdr breath activated 1 inh inhalation BID Qty: 1 0RF metformin 500 mg tablet 500 mg PO BID Qty: 60 1RF Activity Restrictions/Additional Instructions: To whom it May concern: Mr. Sherman was hospitalized at [facility] from 06/2125 through 06/2025. He is cleared to return to work on . If you have any questions or require additional information, please reach out to us at the hospital. Sincerely, Lorene Yoon MD Hospitalist Discharge Health Status Multidrug resistant organism: No MDRO Diet/Activity/Treatments Diet: Carb-consistent/Diabetic Visit Report/Discharge Packet Instructions: Chronic Obstructive Pulmonary Disease (Alternative Therapy), DI for Chronic Obstructive Pulmonary Disease, Parent-Administered Prednisolone Treatments May Help Reduce Asthma Symptoms, Nicotine Transdermal Patch, Prednisone, Albuterol Oral Inhalation, Lisinopril, Metformin, Fluticasone and Salmeterol Oral Inhalation, Be a Partner in Your COPD Care, COPD: When to Call for Help, Physical Activity for People with COPD Stand Alone Forms: [employer], Patient Portal/API, Stroke Signs & Symptoms, Influenza Vaccine Info, Notice of Privacy Practices, Inpatient vs Outpatient, Pneumococcal Vaccine Info, Pt. Rights & Responsibilities
--- NOTE | 2025-06-30 10:45 | CM.DPNOTE ---
DCP note SCOREKEEPER reviewed EMR per RN, on room air. per provider, plan for dc today. per RT, pt got o2 set up for him by Olaf Gandhi back in [facility]. SCOREKEEPER had lengthy conversation with pt. pt plans to buy filters on [employer] and pay for oxygen needs out of pocket while no insurance available. pt reports he was struggling to afford his own meds due to helping his other family members financially. pt spoke in length to his own MH struggles and struggles to help his 7 adult children while they are navigating their own drug use/MH struggles. SCOREKEEPER provided financial relief resources, comm resources, and MH resources per pts request. pt has car here and will drive home. pt denies other DCP needs at this time. P: dc home today, no further needs at this time. will continue to follow as needed for DCP coordination KIM Pierre
--- NOTE | 2025-06-30 12:38 | PM.EVENT ---
Event Note Date Patient Seen: 06/30/25 Time Patient Seen: 12:38 Event Note (Rapid Response, Code, or fall): opened in error
== END 2025-06-30 13:28 | disposition home or self-care (01) | DRG 190 ==
LOC: ED 00:35 → AC 03:53
PROVIDERS: Internal Medicine; Internal Medicine Infectious Disease; Admitting Provider Internal Medicine; Emergency Provider Family Medicine; Referring Provider Family Medicine; Visit Provider Internal Medicine
DX: J44.1 Chronic obstructive pulmonary disease with (acute) exacerbation (principal); J18.9 Pneumonia, unspecified organism; J96.21 Acute and chronic respiratory failure with hypoxia; J44.0 Chronic obstructive pulmonary disease with (acute) lower respiratory infection; I10 Essential (primary) hypertension; E11.9 Type 2 diabetes mellitus without complications; G47.33 Obstructive sleep apnea (adult) (pediatric); D72.829 Elevated white blood cell count, unspecified; Z72.0 Tobacco use
CPT/HCPCS: 36415; 71045; 71275; 80048; 80053; 82550; 82962; 83036; 83690; 83735; 83880; 84484; 85025; 85379; 85610; 85730; 87637; 93005; 93010; 94640; 96374; 96375; 99284; 99285; J0696; J1650; J1815; J2919; J7050; J7060; Q9967